=== PATIENT | male | born 1980 | race Two or more races ===

== ENCOUNTER 2024-11-25 17:03 | Emergency (ER) | payer OTHER ==
[~2024-11-25] VITALS: Ht 190.5 cm; Wt 89.8 kg
== END 2024-11-25 19:24 | disposition home or self-care (01) ==
LOC: ER 17:04
DX: R04.0 Epistaxis (principal); I10 Essential (primary) hypertension; Z88.6 Allergy status to analgesic agent; J32.0 Chronic maxillary sinusitis

== ENCOUNTER 2025-04-20 11:16 | Emergency (ER) | payer OTHER ==
[~2025-04-20] VITALS: Ht 190.5 cm; Wt 139.7 kg
[2025-04-20] MEDS ORDERED: EZALLOR SPRINKLE5 MG PO (12:26)
[2025-04-20] MEDS ORDERED: ZYLOPRIM100 M1 PO (12:26)
[2025-04-20] MEDS ORDERED: ATACAND4 MG PO (12:26)
[2025-04-20] MEDS ORDERED: ACETAMINOPHEN 500 MG GEL..CAP PO ONE ×2 (12:56→13:00)
[2025-04-20] MEDS ORDERED: GUAIFENESIN 200 MG/10 ML BLIST.PACK PO ONE ×2 (12:56→13:00)
[2025-04-20 14:29] LABS: COVID-19 AG NEGATIVE (NEGATIVE)
== END 2025-04-20 15:11 | disposition home or self-care (01) ==
LOC: ER 11:16
PROVIDERS: General Practice
DX: J10.1 Influenza due to other identified influenza virus with other respiratory manifestations (principal); Z20.822 Contact with and (suspected) exposure to COVID-19; I10 Essential (primary) hypertension; Z88.6 Allergy status to analgesic agent